=== PATIENT | male | born 1940 | race Caucasian/White ===

== ENCOUNTER 2019-09-05 15:06 | Inpatient (IN) | payer MEDICARE, OTHER ==
[2019-09-05] MEDS ORDERED: HEPARIN SODIUM,PORCINE 5,000 UNIT/ML 1 ML VIAL IV STA (15:10)
--- NOTE | 2019-09-05 15:12 | ED ---
Chest Pain HPI - General Chief Complaint: Chest Pain Stated Complaint: STEMI Time Seen by Provider: 09/05/19 15:06 Source: patient, family Mode of arrival: EMS Limitations: no limitations - History of Present Illness Initial Comments: The patient is a 79-year-old male with no past cardiac medical history who presents the emergency department with reported chest pain and vomiting. Girlfriend is at bedside and helps provide the history. She states that the patient was at the gym working out when he started feeling ill. He had an episode of vomiting with chest pain. He called his girlfriend who did present to the gym to help him. Patient was extremely diaphoretic. EMS did complete a 12-lead is on the patient which demonstrated acute STEMI findings. They then transferred him to the hospital. They provided him with 4 aspirins. The patient denies a previous cardiac history. He takes Viagra daily for a genitourinary issue. He denies any shortness of breath. No ripping or tearing sensation to his back. No further nausea. No abdominal pain. There are no other alleviating, precipitating or modifying factors - Related Data Home Medications Medication Instructions Recorded Confirmed Ascorbic Acid [Vitamin C] 1,000 mg PO DAILY 09/05/19 09/05/19 Biotin 5 mg PO DAILY 09/05/19 09/05/19 Fluticasone Nasal [place] [Flonase 1 spray EA NOSTRIL BID 09/05/19 09/05/19 Nasal [place]] Multivitamins, Thera [Multivitamin 1 tab PO DAILY 09/05/19 09/05/19 (formulary)] Sildenafil Citrate [Viagra] 50 mg PO ONCE PRN 09/05/19 09/05/19 Sildenafil [Revatio] 20 mg PO DAILY 09/05/19 09/05/19 Zinc 50 mg PO DAILY 09/05/19 09/05/19 Sildenafil Citrate [Viagra] 100 mg PO DAILY PRN 09/06/19 09/06/19 Allergies Allergy/AdvReac Type Severity Reaction Status Date / Time No Known Allergies Allergy Verified 09/05/19 22:26 Review of Systems ROS Statement: Those systems with pertinent positive or pertinent negative responses have been documented in the HPI. ROS Other: All systems not noted in ROS Statement are negative. EKG Findings - EKG Comments: EKG Findings:: EKG demonstrates a normal sinus rhythm with a ventricular rate of 79. DC interval 154. QRS 112. QTC 456. There is acute ST elevation in V2 through V6. Reciprocal changes in 1 and aVL. Past Medical History - Past Family History Mother Family Medical History: CVA/TIA, Diabetes Mellitus Additional Family Medical History / Comment(s): Type 2 Diabetes. Father Family Medical History: Cancer Additional Family Medical History / Comment(s): . Had some type of blood cancer Sister(s) Family Medical History: Blood Disorder, Cancer Additional Family Medical History / Comment(s): 1 sister from Brain tumor and second sisier from Leukemia General Exam General appearance: alert, in no apparent distress Head exam: Present: atraumatic, normocephalic, normal inspection Eye exam: Present: normal appearance, PERRL, EOMI. Absent: scleral icterus, conjunctival injection, periorbital swelling ENT exam: Present: normal exam, mucous membranes moist Neck exam: Present: normal inspection. Absent: tenderness, meningismus, lymphadenopathy Respiratory exam: Present: normal lung sounds bilaterally. Absent: respiratory distress, wheezes, rales, rhonchi, stridor Cardiovascular Exam: Present: regular rate, normal rhythm, normal heart sounds. Absent: systolic murmur, diastolic murmur, rubs, gallop, clicks GI/Abdominal exam: Present: soft, normal bowel sounds. Absent: distended, tenderness, guarding, rebound, rigid Extremities exam: Present: normal inspection, full ROM, normal capillary refill. Absent: tenderness, pedal edema, joint swelling, calf tenderness Back exam: Present: normal inspection Neurological exam: Present: alert, oriented X3, CN II-XII intact Psychiatric exam: Present: normal affect, normal mood Skin exam: Present: warm, intact, normal color, diaphoretic. Absent: rash Course Vital Signs 09/05/19 09/05/19 15:07 15:21 Temperature 97.3 F L Pulse Rate 80 81 Respiratory 18 18 Rate Blood Pressure 135/101 137/88 O2 Sat by Pulse 97 99 Oximetry Chest Pain MDM - MDM Upon arrival the patient was promptly placed into trauma bay 2. He is hooked up to continuous pulse ox and cardiac monitoring. EMS does bring a 12-lead EKG which shows demonstrated ST elevation in leads V2 through V6. There are inverted T waves in 1 and aVL. We did not receive a transmitted EKG however I did activate a STEMI at this time with the prehospital EKG. This was followed by an EKG performed at our facility which demonstrates similar findings. I discussed the case with Dr. Salcedo at 1507. The patient was made nothing by mouth. He is given 4000 units of heparin and 80 mg of simvastatin. The patient does have contraindications to nitro. The patient currently has 5 out of 10 pain which is improved. The patient was taken to the Social Insurance Analyst in stable, yet critical condition Critical Care Time Critical Care Time: Yes Critical Care Time: 15 minutes for consultation with multiple specialists include ink printer, hospitalist and construction person. Disposition Clinical Impression: STEMI (ST elevation myocardial infarction), Chest pain Disposition: ADMITTED IP TO THIS HOSP Condition: Serious Is patient prescribed a controlled substance at d/c from ED?: No Decision to Admit Reason: Admit from EC Decision Date: 09/05/19 Decision Time: 15:17
[2019-09-05] MEDS ORDERED: ATORVASTATIN 40 MG TAB PO STA ×2 (15:18→15:23)
[2019-09-05] MEDS ORDERED: NALOXONE 0.4 MG/ML 1 ML VIAL IV PRN (15:19)
[2019-09-05] MEDS ORDERED: ATORVASTATIN 80 MG TAB PO STA (15:23)
[2019-09-05 15:24] LABS: Basophils # (A) 0.1 k/uL (0-0.2); Basophils % (A) 0 %; Eosinophils # (A) 0.2 k/uL (0-0.7); Eosinophils % (A) 2 %; HCT 49.2 % (39.0-53.0); HGB 16.9 gm/dL (13.0-17.5); Lymphocytes # (A) 2.8 k/uL (1.0-4.8); Lymphocytes % (A) 22 %; MCH 30.6 pg (25.0-35.0); MCHC 34.4 g/dL (31.0-37.0); MCV 88.9 fL (80.0-100.0); Mean Platelet Volume 7.6; Monocytes # (A) 0.6 k/uL (0-1.0); Monocytes % (A) 5 %; Neutrophils % (A) 70 %; Platelet Count 245 k/uL (150-450); RBC 5.53 m/uL (4.30-5.90); RDW 12.1 % (11.5-15.5); WBC 12.8 k/uL (3.8-10.6)
--- NOTE | 2019-09-05 15:31 | XR ---
EXAMINATION TYPE: XR chest 1V portable DATE OF EXAM: 09/05/2019 Comparison: None Clinical History: 79-year-old male chest pain Findings: Heart normal size. Mild elongation thoracic aorta. Diffuse interstitial changes without consolidation or pleural effusion. Impression: Mild diffuse interstitial change may be chronic in this patient. Correlate for bronchitis or asthma.
[2019-09-05 15:33] LABS: Partial Thromboplastin Time 22.9 sec (22.0-30.0); Prothrombin Time 10.5 sec (9.0-12.0)
[2019-09-05 15:38] LABS: Albumin 4.6 g/dL (3.5-5.0); Calcium 10.1 mg/dL (8.4-10.2); Potassium 4.1 mmol/L (3.5-5.1); Total Bilirubin 0.9 mg/dL (0.2-1.3); Total Protein 7.6 g/dL (6.3-8.2)
[2019-09-05] MEDS ORDERED: SODIUM CHLORIDE 0.9% 1,000 ML IV ONE (15:40)
[2019-09-05] MEDS ORDERED: MIDAZOLAM 2 MG/2 ML VIAL IVP ONE (15:44)
[2019-09-05] MEDS ORDERED: LIDOCAINE 1% INJ 10MG/ML (20 ML MDV) SQ ONE (15:46)
[2019-09-05] MEDS ORDERED: fentaNYL (PF) 50 MCG/ML 2 ML AMP IVP ONE (15:48)
[2019-09-05] MEDS ORDERED: BIVALIRUDIN BOLUS 250 MG/50 ML IV ONE (16:04)
[2019-09-05] MEDS ORDERED: BIVALIRUDIN 250 MG in SODIUM CHLORIDE 0.9% 50 ML IV ONE (16:05)
[2019-09-05 16:06] LABS: Creatine Kinase MB 2.1 ng/mL (0.0-2.4)
[2019-09-05] MEDS ORDERED: CLOPIDOGREL 75 MG TAB PO ONE (16:07)
[2019-09-05 16:17] LABS: Troponin I 0.046 ng/mL (0.000-0.034)
[2019-09-05] MEDS ORDERED: IOPAMIDOL-370 125ML BTL INJ ONE (16:21)
[2019-09-05] MEDS ORDERED: ONDANSETRON 4 MG/2 ML VIAL IVP ONE ×2 (16:37→17:04)
[2019-09-05] MEDS ORDERED: niCARdipine Syringe (1,000 mcg/10 mL) INTRACORON ONE (16:37)
[2019-09-05] MEDS ORDERED: DOPamine DRIP 800 MG in DEXTROSE/WATER 1 250ML.BAG IV ONE (16:42)
[2019-09-05] MEDS ORDERED: SODIUM CHLORIDE 0.9% 500 ML 500 ML IV ONE ×2 (17:00→17:46)
[2019-09-05] MEDS ORDERED: SODIUM BICARB 8.4% 50 ML VIAL (1 MEQ/ML) IV ONE ×2 (17:15→17:17)
[2019-09-05] MEDS ORDERED: DEXTROSE 5% IN WATER 100 ML with AMIODARONE 150 MG IV ONE (17:21)
[2019-09-05] MEDS: TIROFIBAN BOLUS 12.5MG/250 ML BAG IV ONE ×2 (17:34→17:40)
[2019-09-05] MEDS ORDERED: HEPARIN SOD,PORK IN 0.45% NACL 25,000 UNIT in 0.45% NACL 1 250ML.BAG IV ONE (17:39)
[2019-09-05] MEDS: MAGNESIUM SULFATE-D5W PMX 1 GM in DEXTROSE/WATER 1 100ML.BAG IVPB SCH ×2 (17:39→18:26)
[2019-09-05] MEDS ORDERED: TIROFIBAN 12.5MG-250ML NS 250 ML IV ONE (17:46)
[2019-09-05] MEDS ORDERED: IOPAMIDOL-370 100ML BTL INJ ONE (17:50)
[2019-09-05] MEDS ORDERED: MAG HYDROX/AL HYDROX/SIMETH 30 ML CUP PO PRN (18:01)
[2019-09-05] MEDS ORDERED: RX INFO: IV CONTRAST WAS GIVEN 1 EACH MISC MISCELLANE PRN (18:01)
[2019-09-05] MEDS ORDERED: ATROPINE SULFATE 0.1 MG/ML 10ML SYRINGE IV PRN (18:01)
[2019-09-05] MEDS ORDERED: ZOLPIDEM 5 MG TAB PO PRN (18:01)
[2019-09-05] MEDS ORDERED: NITROGLYCERIN SL TABS 0.4 MG TAB SUBLINGUAL PRN (18:01)
[2019-09-05] MEDS ORDERED: SODIUM CHLORIDE 0.9% 1,000 ML IV SCH (18:15)
[2019-09-05] MEDS ORDERED: SODIUM CHLORIDE 0.9% 250 ML IV ONE (18:27)
[2019-09-05] MEDS ORDERED: AMIODARONE 360 MG in DEXTROSE 5% IN WATER 200 ML IV ONE ×2 (18:58)
[2019-09-05] MEDS ORDERED: HEPARIN SOD,PORK IN 0.45% NACL 25,000 UNIT in 0.45% NACL 1 250ML.BAG IV SCH (22:00)
--- NOTE | 2019-09-05 22:01 | CONS ---
CONSULTATION CHIEF COMPLAINT: Chest pain. This is a 79-year-old gentleman who is from [place], visiting a friend here in [place]. Developed sudden-onset chest pain after he exercised and stopped the exercise, became nauseous, vomited, had severe 10/10 intensity chest pain, came to the ER. His EKG showed acute ST-segment elevation in V2, V3, V4, V5, V6 suggestive of acute anterior wall myocardial infarction. The patient is brought into the dairy and food laboratory assistant as a STEMI and at the time of my evaluation, appears comfortable at rest, hemodynamically stable, but still has chest pain and ST-segment elevation. His labs are pending at this time. The patient does not take any medications other than Viagra. He took Viagra last night and early this morning. FAMILY HISTORY: Negative for premature coronary artery disease. ALLERGIES: None. SOCIAL HISTORY: Negative for smoking, EtOH abuse or drug abuse. REVIEW OF SYSTEMS: HEENT: Unremarkable. CARDIAC: As described above. RESPIRATORY: As described above. GI: Negative. GENITOURINARY: Negative. ALLERGY/IMMUNOLOGY: Negative. MUSCULOSKELETAL: Negative. PSYCHOSOCIAL: Negative. ENDOCRINE: Negative. DERM: Negative. CONSTITUTIONAL: Negative. ONCOLOGICAL: Negative. Rest of the system review is not relevant. EXAM: Comfortable at rest. Vital signs are stable. There is no jugular venous distention. Chest exam reveals good air entry bilaterally. Heart exam reveals first and second heart sounds. No gallop. Abdomen is soft. Exam of extremities did not reveal any edema. Peripheral pulses are felt. DIVISION TRAFFIC SUPERINTENDENT exam did not reveal focal neurological deficits. ASSESSMENT: Acute anterior wall myocardial infarction. PLAN: Patient already received heparin, aspirin, statins. He will undergo emergent cardiac catheterization with a view to performing angioplasty. The patient had been explained of risks, benefits. MMODL / IJN: [id number] /
--- NOTE | 2019-09-05 22:02 | P.HPIM ---
History of Present Illness H&P Date: 09/05/19 Chief Complaint: Chest pain Patient is a 79-year-old male with a known history of prostate issues status post recent surgery, previous history of smoking presents to ER with complaints of severe nausea and vomiting along with chest discomfort. Patient was working out in a gym. He did some x-rays and weightlifting. He went to drink some water and suddenly felt very nauseated and felt like vomiting. Patient went to the restroom and felt very diaphoretic and pale. He called his girlfriend who did present to his usual to help him. EMS was called and follow lead EKG showed acute ST elevated NM. Patient was transferred to Hospital immediately. Patient was given aspirin in route. Denied any complaints of shortness of breath. No recent illnesses. No cough or sputum production. Patient is originally from [place] and is visiting his friend in [place]. Chest x-ray showed mild diffuse interstitial changes may be chronic. Correlate for bronchitis or asthma. EKG showed ST elevation in the lateral leads. Troponin 0.046 Patient had previous history of smoking. Currently not smoking. Occasional alcohol use. No history of hypertension or diabetes. Status post cardiac catheterization and stent placement 2. Placed on impella. Currently in the MICU. Denied any complaints of chest pain now. Review of Systems Constitutional: Patient denies any fever or chills . No generalized weakness or weight loss. Abdomen: Patient denied nausea vomiting and diarrhea and abdominal pain. Cardiovascular: Patient does have chest discomfort and nausea. No palpitations. No leg swelling. Shortness of breath.. Respiratory: patient denied any cough is from production. No shortness of breath Neurologic: Patient denied any numbness or tingling headache. Musculoskeletal: Patient denies any complaints of joint swelling or deformity. Skin: Negative Psychiatric: Negative Endocrine: No heat or cold intolerance. No recent weight gain. Genitourinary: No dysuria or hematuria. All other 14 point ROS negative except the above Past Medical History Additional Past Medical History / Comment(s): prostate issue History of Any Multi-Drug Resistant Organisms: None Reported Additional Past Surgical History / Comment(s): prostate Past Psychological History: No Psychological Hx Reported Smoking Status: Former smoker Past Alcohol Use History: Occasional Past Drug Use History: None Reported Medications and Allergies Allergies Allergy/AdvReac Type Severity Reaction Status Date / Time No Known Allergies Allergy Verified 01/04/20 15:17 Physical Exam Vitals: Vital Signs Temp Pulse Resp BP Pulse Ox 09/05/19 16:01 97.3 F L 81 18 137/88 99 09/05/19 15:21 81 18 137/88 99 09/05/19 15:07 97.3 F L 80 18 135/101 97 Intake and Output 09/05/19 09/05/19 09/05/19 06:59 14:59 22:59 Other: Weight 84.822 kg PHYSICAL EXAMINATION: Patient is lying in the bed comfortably, no acute distress, awake alert and oriented.. HEENT: Normocephalic. Neck is supple. Pupils reactive. Nostrils clear. Oral cavity is moist. Ears reveal no drainage. Neck reveals no JVD, carotid bruits, or thyromegaly. CHEST EXAMINATION: Trachea is central. Symmetrical expansion. Lung snyder clear to auscultation and percussion. CARDIAC: Normal S1, S2 with no gallops. No murmurs ABDOMEN: Soft. Right groin cath site is bleeding. Bowel sounds normal. No organomegaly. No abdominal bruits. Extremities: reveal no edema. No clubbing or cyanosis Neurologically awake, alert, oriented x3 with well-coordinated movements. No focal deficits noted Skin: No rash or skin lesions. Psychiatric: Coperative. Nonsuicidal Musculoskeletal: No joint swelling or deformity. Normal range of motion. Results CBC & Chem 7: 09/05/19 15:10 09/05/19 15:10 Labs: Abnormal Lab Results - Last 24 Hours (Table) 09/05/19 09/05/19 09/05/19 Range/Units 15:10 15:10 15:10 WBC 12.8 H (3.8-10.6) k/uL Neutrophils # 9.0 H (1.3-7.7) k/uL BUN 21 H (9-20) mg/dL Glucose 127 H (74-99) mg/dL Total Creatine Kinase 201 H (55-170) U/L Troponin I 0.046 H* (0.000-0.034) ng/mL Thrombosis Risk Factor Assmnt - DVT/VTE Prophylaxis DVT/VTE Prophylaxis: Pharmacologic Prophylaxis ordered Assessment and Plan Assessment: Acute ST elevated NM. Status post cardiac catheterization and stent placement 2 History of prostate issues status post surgery Previous history of smoking Plan: Patient will be continued on telemetry monitoring. Currently on Impella. Also being continued on heparin drip and amiodarone drip. Patient Was started on aspirin and beta blockers. Cardiology and pulmonary is following. Further recommendations based on the clinical course. Time with Patient: Greater than 30
[2019-09-05 22:35] LABS: Albumin 3.6 g/dL (3.5-5.0); Calcium 8.9 mg/dL (8.4-10.2); INR 1.2 (<1.2); Prothrombin Time 12.5 sec (9.0-12.0); Total Bilirubin 1.7 mg/dL (0.2-1.3); Total Protein 6.4 g/dL (6.3-8.2)
[2019-09-05 22:37] LABS: Basophils % (A) 0 %; Eosinophils % (A) 0 %; HCT 44.4 % (39.0-53.0); HGB 15.4 gm/dL (13.0-17.5); Lymphocytes % (A) 6 %; MCH 30.8 pg (25.0-35.0); MCHC 34.8 g/dL (31.0-37.0); MCV 88.5 fL (80.0-100.0); Mean Platelet Volume 8.9; Monocytes # (A) 0.7 k/uL (0-1.0); Monocytes % (A) 4 %; Neutrophils # (A) 15.1 k/uL (1.3-7.7); Neutrophils % (A) 89 %; Platelet Count 260 k/uL (150-450); Potassium 4.2 mmol/L (3.5-5.1); RBC 5.01 m/uL (4.30-5.90); RDW 12.3 % (11.5-15.5); WBC 16.9 k/uL (3.8-10.6)
--- NOTE | 2019-09-05 22:46 | CC ---
CARDIAC CATHETERIZATION REPORT INDICATION: Acute anterior wall myocardial infarction. PROCEDURE NOTE: After obtaining informed consent, left heart catheterization and coronary angiogram were performed via the right femoral artery using standard Brisa catheters. The patient tolerated the procedure well without any obvious immediate complications. Patient received moderate conscious sedation. Total sedation time was 14 minutes. FINDINGS: HEMODYNAMICS: Left ventricular end-diastolic pressure is around 24 mm. There is no significant gradient across the aortic valve. LEFT VENTRICULOGRAM: Left ventriculogram was not performed. ANGIOGRAPHIC DATA: LEFT MAIN CORONARY ARTERY: Left main coronary artery is a normal-sized vessel and is free of stenosis. Divides into left anterior descending coronary artery and circumflex coronary artery. LEFT ANTERIOR DESCENDING CORONARY ARTERY: LAD is totally occluded in its proximal portion. CIRCUMFLEX CORONARY ARTERY: Circumflex coronary artery gives off a high OM branch that shows an ostial stenosis that seems to be around 60%. [place] circumflex coronary artery has a [id number] atherosclerotic plaque. The LAD appears totally occluded in its proximal portion. The distal left main has an atherosclerotic plaque. RIGHT CORONARY ARTERY: Right coronary artery is a large dominant vessel that shows mild nonobstructive disease in the distal portion. CONCLUSIONS: Acutely occluded proximal LAD, 60 percent stenosis involving the ostial portion of the high OM branch and mild nonobstructive disease involving mid to distal circumflex coronary artery. PLAN: Patient will undergo angioplasty of the proximal LAD by Dr. Chau, the on-call steward/stewardess second class. JEFFREY / PRESLEY: [id number] /
[2019-09-05] MEDS ORDERED: DEXTROSE/WATER 1 250ML.BAG with DOPamine DRIP 800 MG IV SCH (23:00)
--- NOTE | 2019-09-05 23:43 | PTCA ---
PERCUTANEOUSTRANS CORORONARY ANGIOGRAPHY DATE OF SERVICE: September 05, 2019. PERFORMING PHYSICIAN: Ascencion Chau MD. PROCEDURE PERFORMED: 1. Aspiration thrombectomy from the left anterior descending artery with extraction of thrombus. 2. Successful stenting of the proximal left anterior descending artery using a 3.0 x 15 and 3.25 x 12 mm Xience LYNNE with an excellent angiographic results and reduction of stenosis from 100% to 0%. 3. Successful placement of Impella in the left ventricle. INDICATION: This is a 79-year-old gentleman with no prior medical history, who presented to the hospital with chest discomfort and was diagnosed with acute anterior ST-elevation myocardial infarction. He underwent a heart catheterization by Dr. Salcedo and that revealed occluded LAD in the proximal portion right from the left main. Beside that, the patient does have intermediate to severe disease involving the distal left main coronary artery. The decision was made towards percutaneous coronary intervention. APPROACH: Right common femoral artery and left common femoral artery. COMPLICATION: None. LEVEL OF SEDATION: Is an hour and 45 minutes. PROCEDURE DESCRIPTION: Please refer to diagnostic heart catheterization was performed by Dr. Salcedo earlier today. Anticoagulation was initiated using Angiomax with bolus and drip. Subsequently I did engage the left main using JL4 guide. I did wire the LAD using a whisper wire and the wire was advanced to the mid to distal LAD. After that, I did aspiration thrombectomy from the LAD using an [place] catheter. Initially I was able to extract a small amount of thrombus and the following angiogram showed that large thrombus burden still there. I went back with the aspiration thrombectomy catheter and I was able to extract more thrombus burden from the LAD and restore the flow to the LAD although it was not SID-3 flow. Subsequently, I did balloon angioplasty of the left anterior descending artery in the proximal portion using 2.0 x 12 mm balloon. The balloon was inflated under 20 atmospheres for 20 seconds. After that, I did place in the LAD proximally 3.0 x 15 mm Xience drug-eluting stent where the stent was positioned under fluoroscopy guidance and deployed under 14 atmospheres for 20 seconds. The stent proximally looks good, well apposed to wall of the LAD, but in the mid and distal portion of the stent seems to be not well apposed because that area was aneurysmal/large. Because of that, I did post dilated that mid and distal, portion of portions of the stent using 3.75 mm noncompliant balloon. The balloon was inflated under 18 atmospheres for 20 seconds. The following angiogram showed no flow in the left anterior descending artery. At that point, the patient's blood pressure was 2 start marginally low and dropped to about 70 mmHg. At that point, I decided to use an Impella in the left ventricle. Because the pressure continues to be persistently low and the patient was symptomatic, I decided to pursue with the Impella in the left ventricle. I did access the left common femoral artery using micropuncture technique under ultrasound guidance, the micropuncture wire passed easily and then I placed a 6-Ethiopian sheath in the left common femoral artery. I decided to go to the Impella in the right groin because the right iliac artery was less tortuous than the left iliac artery and because I want to do Perclose down the line. So I did upgrade my sheath into 14-Ethiopian sheath over stiff 035 wire. After that, I did cross the left ventricle using 0.035 J-wire with the backup support of pigtail catheter. Then I did exchange my 0.035 wire into 018 victory 18 wire using the 5-Ethiopian pigtail catheter. I did use an 18 wire because the Impella 018 wire every time crossed the left ventricle, the patient went into VFib and we had to shock the patient twice. At that point, I decided to use a V18 wire. With the 18 wire, the left ventricle was more saddled without any arrhythmia. Subsequently the Impella was advanced over the 018 wire to the left ventricle and it was turned on to pump at 3.5 L/minute. Subsequently, I went back to using JL4 guide to check the stent in the LAD proximally and the following angiogram did show that the stent appeared to be thrombosed in the midportion with haziness and possible clot there. I decided to cover that with a stent so I did wire it using a 014 wire and then I did another 3.25 x 12 mm Xience LYNNE where the stent was positioned under fluoroscopy guidance and deployed under 14 atmospheres for 20 seconds with the following angiogram showed good results. The procedure was completed without any complication. POSTPROCEDURE MANAGEMENT: 1. Dual anti-platelet therapy. 2. Anti-platelet with Aggrastat and anticoagulation with heparin. 3. Aggressive cholesterol control. 4. An echocardiogram with Doppler. 5. Standard groin care. 6. Continue Impella for at least 24-48 hours. 7. Monitor for symptoms and signs of acute limb ischemia. 8. Follow up with the patient. MMODL / IJN: [id number] /
[2019-09-05] MEDS ORDERED: ONDANSETRON 4 MG/2 ML VIAL ONE (23:47)
[2019-09-06] MEDS: HEPARIN SODIUM,PORCINE 12,500 UNIT in DEXTROSE 5% IN WATER 500 ML IV SCH ×2 (00:01)
[2019-09-06] MEDS: AMIODARONE 300 MG in DEXTROSE 5% IN WATER 250 ML IV SCH ×6 (00:55→15:35)
[2019-09-06] MEDS ORDERED: TIROFIBAN 12.5MG-250ML NS 250 ML IV SCH (02:15)
[2019-09-06 04:27] LABS: Basophils % (A) 0 %; Eosinophils % (A) 0 %; HCT 44.1 % (39.0-53.0); HGB 15.4 gm/dL (13.0-17.5); Lymphocytes # (A) 1.3 k/uL (1.0-4.8); Lymphocytes % (A) 7 %; MCH 31.1 pg (25.0-35.0); Mean Platelet Volume 7.8; Monocytes # (A) 0.8 k/uL (0-1.0); Monocytes % (A) 5 %; Neutrophils # (A) 15.1 k/uL (1.3-7.7); Neutrophils % (A) 87 %; Platelet Count 251 k/uL (150-450); RBC 4.96 m/uL (4.30-5.90); RDW 12.6 % (11.5-15.5); WBC 17.3 k/uL (3.8-10.6)
[2019-09-06 04:54] LABS: Calcium 9.1 mg/dL (8.4-10.2); Magnesium 2.2 mg/dL (1.6-2.3)
[2019-09-06 04:59] LABS: Potassium 4.1 mmol/L (3.5-5.1)
[2019-09-06] MEDS ORDERED: METOPROLOL TARTRATE 25 MG TAB PO STA ×2 (06:06→14:59)
[2019-09-06] MEDS ORDERED: AMIODARONE 300 MG in DEXTROSE 5% IN WATER 250 ML IV SCH ×2 (07:03)
[2019-09-06] MEDS: ASPIRIN 325 MG TAB PO SCH (09:49)
--- NOTE | 2019-09-06 11:02 | CONS ---
CONSULTATION PULMONARY/CRITICAL CARE CONSULTATION: DATE OF SERVICE: 09/06/2019 This is a 79-year-old male who lives out of the area. He has no significant past cardiac history. He presents to the emergency department with complaints of severe chest pain and vomiting. His girlfriend is at the bedside. She provides some of the history. Apparently, the patient was working out at the gym when he started feeling ill. He had an episode of vomiting and chest discomfort. He called his girlfriend who helped him get to the emergency room. Apparently, the patient was extremely diaphoretic. EMS did do a 12-lead EKG on the patient which demonstrated significant ST- segment elevation anterior leads, particularly anterior septal and lateral leads. He was transferred to the hospital. He was given aspirin. He was placed on oxygen. The patient did apparently recently have use of Viagra. Anyway, the patient denied any shortness of breath. There was no ripping or tearing sensation. No abdominal pain. No fever or chills. The patient was diagnosis having a ST-segment elevation myocardial infarction. The patient went to the cardiac cath lab radiology technologist. Two stents were placed in the LAD. The patient developed ventricular fibrillation. He was defibrillated x2 with 200 joules. An Impella device was placed. The patient is currently on 3 L nasal cannula. He is getting dopamine at 2.5 mcg/kg per minute, heparin via weight based protocol, Aggrastat at 0.15 mcg/kg per minute, amiodarone 0.5 mg/minute and 0.9 at 20 mL an hour. The patient seems to be resting relatively comfortably, but he is very, very tired. HOME MEDICATIONS: Include zinc, modafinil, multivitamins, Flonase nasal spray, biotin, and ascorbic acid. 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 ALLERGIES: Denied. PAST MEDICAL HISTORY: Unremarkable say for prostate issue. SURGICAL HISTORY: Unremarkable say for prostate surgery. SOCIAL HISTORY: Positive for remote tobacco use. He drinks socially. No illicit drug use. Mother and father were healthy. The rest of the history is not too remarkable. Again, he does not live in this area. He was up visiting his girlfriend. REVIEW OF SYSTEMS: CONSTITUTIONAL: Fatigue. NEUROLOGIC: Negative. HEENT: Negative. CARDIOVASCULAR: Chest pain. PULMONARY: Negative. GI: Vomiting. : Negative. RHEUMATOLOGIC: Negative. IMMUNOLOGIC: Negative. ENDOCRINOLOGIC: Negative. DERMATOLOGIC: Negative. PHYSICAL EXAMINATION: Current vital signs are reviewed. His temperature 98.2, heart rate 72, respiratory rate 12, blood pressure 130/95, mean 1.6, 3 L saturation is 94%. Appears in no acute distress. HEENT examination is grossly unremarkable. Mucous membranes are moist. Nasal O2 in place. NECK: Supple full range of motion. No adenopathy. Neck veins are flat. CARDIOVASCULAR: Examination reveals regular rhythm rate. S1, S2 normal. No distinct murmur noted. LUNGS: A few scattered rhonchi. No wheezes or crackles. Breath sounds equal. ABDOMEN: Soft. Bowel sounds are heard. EXTREMITIES are intact. No cyanosis, clubbing, or edema. SKIN: Without rash. NEUROLOGIC: Examination is brief but nonfocal. LABS: Reviewed. White count 17.3, hemoglobin 15.4, hematocrit 44.1, platelet count is normal. PTT 77.1. Sodium 137, potassium 4.1, chloride 104, CO2 22, anion gap is 11. BUN and creatinine were 21 and 1.11. AST 668, ALT 77. His troponins were 0.046, 251 and then 184. Chest x-ray is reviewed. It shows some mild diffuse interstitial changes, which may be consistent with some mild interstitial edema. Microbiology is negative or pending. Medications are reviewed. He is on all the appropriate post cardiac catheterization medications. ASSESSMENT: 1. ST-segment elevation myocardial infarction, secondary to coronary artery disease, with 2 stents placed in the left anterior descending. 2. Ventricular fibrillation, status post defibrillation x2 and placement of an Impella device. 3. Remote tobacco history. 4. History of prostate disorder. 5. No other major medical problems to speak of. PLAN: Will continue to follow. Prognosis is guarded. He is on appropriate drips including dopamine, Aggrastat, amiodarone, and saline. He is also on heparin via weight based protocol. No additional recommendations are made. Again prognosis is guarded. Labs, x-rays and medications are all reviewed. MMODL / IJN: [id number] /
[2019-09-06] MEDS: CLOPIDOGREL 75 MG TAB PO SCH (12:08)
[2019-09-06 13:33] VITALS: BMI 28.0
--- NOTE | 2019-09-06 15:56 | PN ---
PROGRESS NOTE 79-year-old gentleman who is admitted to the hospital with acute anterior wall myocardial infarction and underwent emergent cardiac catheterization and angioplasty of LAD. The patient developed ventricular fibrillation during his angioplasty and had to be twice shocked. He had an Impella device placed and has remained hemodynamically stable. The patient had low urine output and was started on dopamine following which his urine output had improved. At the time of my evaluation this morning he remains in sinus rhythm, hemodynamically stable. Impala is functioning normally. The patient is on IV amiodarone which will be switched to p.o. amiodarone, aspirin Lipitor, Plavix, IV heparin and Aggrastat. The patient will have Impella support until tomorrow. I discussed this with Dr. Chau and I am going to add a small dose of beta jatinder and ALESHIA inhibitor to him. His peak troponin was 250. PHYSICAL EXAMINATION: On exam this morning, he appears comfortable at rest. Vital signs are stable. Chest exam reveals good air entry bilaterally. Heart exam reveals first and second heart sounds. No gallop. No murmur. Abdomen is soft. Exam of extremities did not reveal any edema. Peripheral pulses are felt. LABS: Show that the hemoglobin is 15.4, platelet count is 250. Potassium is 4.1, creatinine is 1.1. ASSESSMENT: 1. Acute anterior wall myocardial infarction. 2. Cardiogenic shock. 3. Ventricular fibrillation. PLAN: Patient is much better this morning. Will continue with the hemodynamic support for another 24 hours. Obtain a 2D echo in the morning to assess his LV function. JEFFREY / LISAN: [id number] /
[2019-09-06] MEDS ORDERED: SENNOSIDES 8.6 MG TAB PO PRN (19:41)
[2019-09-06] MEDS ORDERED: ACETAMINOPHEN TAB 500 MG TAB PO PRN (19:41)
[2019-09-06] MEDS: METOPROLOL TARTRATE 25 MG TAB PO SCH (20:19)
[2019-09-06] MEDS: ATORVASTATIN 80 MG TAB PO SCH (20:19)
[2019-09-06] MEDS ORDERED: AMIODARONE 200 MG TAB PO SCH (21:00)
--- NOTE | 2019-09-06 23:39 | P.PN ---
Subjective Progress Note Date: 09/06/19 Principal diagnosis: Acute ST elevated [place] Patient is a 79-year-old male with a known history of prostate issues status post recent surgery, previous history of smoking presents to ER with complaints of severe nausea and vomiting along with chest discomfort. Patient was working out in a gym. He did some x-rays and weightlifting. He went to drink some water and suddenly felt very nauseated and felt like vomiting. Patient went to the restroom and felt very diaphoretic and pale. He called his girlfriend who did present to his usual to help him. EMS was called and follow lead EKG showed acute ST elevated [place]. Patient was transferred to Hospital immediately. Patient was given aspirin in route. Denied any complaints of shortness of breath. No recent illnesses. No cough or sputum production. Patient is originally from [place] and is visiting his friend in [place]. Chest x-ray showed mild diffuse interstitial changes may be chronic. Correlate for bronchitis or asthma. EKG showed ST elevation in the lateral leads. Troponin 0.046 Patient had previous history of smoking. Currently not smoking. Occasional alcohol use. No history of hypertension or diabetes. Status post cardiac catheterization and stent placement 2. Placed on impella. Currently in the MICU. Denied any complaints of chest pain now. 09/06/2019 Patient is currently in the MICU. Remained on ImPELLA. Otherwise patient denied any complaints of chest pain or shortness of breath. Feels weak and tired. No complaints of nausea vomiting or abdominal pain. Patient did have a run of V. tach. Currently being continued on amiodarone drip. Also on metoprolol. Cardiology and pulmonary is following. Active Medications Acetaminophen (Tylenol Tab) 500 mg PO Q6HR PRN PRN Reason: Fever and/ or Pain Al Hydroxide/Mg Hydroxide (Maalox) 30 ml PO Q4HR PRN PRN Reason: Heartburn Aspirin (Aspirin) 325 mg PO DAILY [facility] Last Admin: 09/06/19 09:49 Dose: 325 mg Documented by: Atorvastatin Calcium (Lipitor) 80 mg PO HS [facility] Last Admin: 09/06/19 20:19 Dose: 80 mg Documented by: Atropine Sulfate (Atropine) 0.5 mg IV ONCE PRN PRN Reason: Symptomatic Bradycardia Clopidogrel Bisulfate (Plavix) 75 mg PO DAILY [facility] Last Admin: 09/06/19 12:08 Dose: 75 mg Documented by: Heparin Sodium (Porcine) 12, (500 unit/ Dextrose/Water) 501.25 mls @ 0 mls/hr IV DIRECTED [facility] Last Admin: 09/06/19 00:01 Dose: 11.3 mls/hr Documented by: Heparin Sodium/Sodium Chloride (25,000 unit/ Sodium Chloride) 250 mls @ 0 mls/hr IV .Q0M [facility]; Protocol Last Titration: 09/06/19 20:05 Dose: 357 units/hr, 3.57 mls/hr Documented by: Amiodarone HCl 300 mg/ (Dextrose/Water) 250 mls @ 25 mls/hr IV .Q10H [facility]; Protocol Last Admin: 09/06/19 15:35 Dose: 0.5 mg/min, 25 mls/hr Documented by: Lisinopril (Zestril) 2.5 mg PO DAILY [facility] Metoprolol Tartrate (Lopressor) 25 mg PO BID [facility] Last Admin: 09/06/19 20:19 Dose: 25 mg Documented by: Miscellaneous Information (Rx Info: Iv Contrast Was Given) 1 each MISCELLANE DAILY PRN PRN Reason: Per Protocol Stop: 09/07/19 18:02 Naloxone HCl (Narcan) 0.2 mg IV Q2M PRN PRN Reason: Opioid Reversal Nitroglycerin (Nitrostat) 0.4 mg SUBLINGUAL Q5M PRN PRN Reason: Chest Pain Senna (Senokot) 8.6 mg PO DAILY PRN PRN Reason: Constipation Zolpidem Tartrate (Ambien) 5 mg PO HS PRN PRN Reason: Insomnia Last Admin: 09/06/19 20:19 Dose: 2.5 mg Documented by: Objective - Vital Signs Vital signs: Vital Signs Temp 96.7 F L 09/06/19 20:00 Pulse 65 09/06/19 22:15 Resp 10 L 09/06/19 22:15 BP 97/70 09/06/19 22:00 Pulse Ox 93 L 09/06/19 22:15 Intake & Output 09/06/19 09/06/19 09/07/19 06:59 18:59 06:59 Intake Total 1260.667 893.221 130.8 Output Total 1747 665 95 Balance -486.333 228.221 35.8 Weight 91.3 kg 91.3 kg Intake: IV 1147.50 543.10 93 DOPamine DRIP 800 mg In 23.88 19.90 Dextrose/Water 1 250ml. bag @ 0 mls/hr IV .[facility] Rx#:[id number] Impella Purge Fluid (D5 122.3 132 33 with Heparin) Magnesium Sulfate-D5w Pmx 100 1 gm In Dextrose/Water 1 100ml.bag @ 100 mls/hr IVPB Q1H [facility] Rx#: [id number] Sodium Chloride 0.9% 1, 735 240 60 000 ml @ 75 mls/hr IV . [id number] [facility] Rx#:[id number] Tirofiban 12.5MG-250Ml Ns 166.32 151.20 250 ml @ 0 mls/hr IV . [facility] Rx#: [id number] Intake, IV Titration 113.167 305.121 37.8 Amount Amiodarone 300 mg In 250 Dextrose 5% in Water 250 ml @ 0.5 MG/MIN 25 mls/hr IV .Q10H [facility] Rx#: [id number] Heparin Sod,Pork in 0.45% 113.167 55.121 37.8 NaCl 25,000 unit In 0.45 % NaCl 1 250ml.bag @ Per Protocol IV .Q0M [facility] Rx#: [id number] Oral 45 Output: Urine 1747 665 95 Other: Voiding Method Indwelling Catheter Indwelling Catheter Indwelling Catheter ABP, PAP, CO, CI - Last Documented Arterial Blood Pressure 103/58 - Exam PHYSICAL EXAMINATION: Patient is lying in the bed comfortably, no acute distress, awake alert and oriented.. HEENT: Normocephalic. Neck is supple. Pupils reactive. Nostrils clear. Oral cavity is moist. Ears reveal no drainage. Neck reveals no JVD, carotid bruits, or thyromegaly. CHEST EXAMINATION: Trachea is central. Symmetrical expansion. Lung snyder clear to auscultation and percussion. CARDIAC: Normal S1, S2 with no gallops. No murmurs ABDOMEN: Soft. Right groin cath is in place. No bleeding. Bowel sounds normal. No organomegaly. No abdominal bruits. Extremities: reveal no edema. No clubbing or cyanosis Neurologically awake, alert, oriented x3 with well-coordinated movements. No focal deficits noted Skin: No rash or skin lesions. Psychiatric: Coperative. Nonsuicidal Musculoskeletal: No joint swelling or deformity. Normal range of motion. - Labs CBC & Chem 7: 09/06/19 04:08 09/06/19 04:08 Labs: Abnormal Lab Results - Last 24 Hours (Table) 09/05/19 09/05/19 09/05/19 Range/Units 21:18 21:18 21:18 WBC 16.9 H (3.8-10.6) k/uL Neutrophils # 15.1 H (1.3-7.7) k/uL PT (9.0-12.0) sec INR (<1.2) APTT (22.0-30.0) sec Sodium (137-145) mmol/L Carbon Dioxide (22-30) mmol/L BUN (9-20) mg/dL Glucose (74-99) mg/dL Magnesium 2.4 H (1.6-2.3) mg/dL Total Bilirubin (0.2-1.3) mg/dL AST (17-59) U/L ALT (4-49) U/L CK-MB (CK-2) 441.0 H (0.0-2.4) ng/mL Troponin I 251.000 H* (0.000-0.034) ng/mL 09/05/19 09/05/19 09/06/19 Range/Units 21:18 21:18 04:08 WBC (3.8-10.6) k/uL Neutrophils # (1.3-7.7) k/uL PT 12.5 H (9.0-12.0) sec INR 1.2 H (<1.2) APTT (22.0-30.0) sec Sodium 135 L (137-145) mmol/L Carbon Dioxide 20 L (22-30) mmol/L BUN 21 H (9-20) mg/dL Glucose 172 H 198 H (74-99) mg/dL Magnesium (1.6-2.3) mg/dL Total Bilirubin 1.7 H (0.2-1.3) mg/dL AST 668 H (17-59) U/L ALT 77 H (4-49) U/L CK-MB (CK-2) (0.0-2.4) ng/mL Troponin I (0.000-0.034) ng/mL 09/06/19 09/06/19 09/06/19 Range/Units 04:08 04:08 04:08 WBC 17.3 H (3.8-10.6) k/uL Neutrophils # 15.1 H (1.3-7.7) k/uL PT (9.0-12.0) sec INR (<1.2) APTT 77.1 H (22.0-30.0) sec Sodium (137-145) mmol/L Carbon Dioxide (22-30) mmol/L BUN (9-20) mg/dL Glucose (74-99) mg/dL Magnesium (1.6-2.3) mg/dL Total Bilirubin (0.2-1.3) mg/dL AST (17-59) U/L ALT (4-49) U/L CK-MB (CK-2) 367.0 H (0.0-2.4) ng/mL Troponin I 184.000 H* (0.000-0.034) ng/mL 09/06/19 09/06/19 Range/Units 11:53 18:05 WBC (3.8-10.6) k/uL Neutrophils # (1.3-7.7) k/uL PT (9.0-12.0) sec INR (<1.2) APTT 83.8 H 101.9 H* (22.0-30.0) sec Sodium (137-145) mmol/L Carbon Dioxide (22-30) mmol/L BUN (9-20) mg/dL Glucose (74-99) mg/dL Magnesium (1.6-2.3) mg/dL Total Bilirubin (0.2-1.3) mg/dL AST (17-59) U/L ALT (4-49) U/L CK-MB (CK-2) (0.0-2.4) ng/mL Troponin I (0.000-0.034) ng/mL Assessment and Plan Assessment: Acute ST elevated [place]. Status post cardiac catheterization and stent placement 2 Nonsustained V. tach. History of prostate issues status post surgery Previous history of smoking Plan: Patient will be continued on telemetry monitoring. Currently on Impella. Also being continued on heparin drip and amiodarone drip. Patient Was started on aspirin and beta blockers. Cardiology and pulmonary is following. Further recommendations based on the clinical course. Time with Patient: Greater than 30
[2019-09-07] MEDS: AMIODARONE 300 MG in DEXTROSE 5% IN WATER 250 ML IV SCH ×4 (00:48→14:11)
[2019-09-07 04:26] LABS: HCT 36.8 % (39.0-53.0); HGB 12.8 gm/dL (13.0-17.5); MCH 30.8 pg (25.0-35.0); MCHC 34.9 g/dL (31.0-37.0); MCV 88.5 fL (80.0-100.0); Mean Platelet Volume 7.9; Platelet Count 163 k/uL (150-450); RBC 4.16 m/uL (4.30-5.90); RDW 12.4 % (11.5-15.5); WBC 18.1 k/uL (3.8-10.6)
[2019-09-07 04:49] LABS: Albumin 3.2 g/dL (3.5-5.0); Calcium 8.6 mg/dL (8.4-10.2); Total Bilirubin 1.6 mg/dL (0.2-1.3); Total Protein 5.8 g/dL (6.3-8.2)
[2019-09-07] MEDS: HEPARIN SODIUM,PORCINE 12,500 UNIT in DEXTROSE 5% IN WATER 500 ML IV SCH ×2 (06:06)
--- NOTE | 2019-09-07 07:19 | XR ---
EXAMINATION TYPE: XR chest 1V portable DATE OF EXAM: 09/07/2019 COMPARISON: 09/05/2019 HISTORY: Shortness of breath TECHNIQUE: Single frontal view of the chest is obtained. FINDINGS: There is no focal air space opacity, pleural effusion, or pneumothorax seen. There are 2 n ew lesions now overlying the left ventricle and right mid mediastinum. Minimal pulmonary vascular con gestion has slightly improved. The cardiac silhouette size is within normal limits. The osseous str uctures are intact. IMPRESSION: Improved pulmonary vascular congestion, now minimal.
[2019-09-07] MEDS ORDERED: LISINOPRIL 2.5 MG TAB PO SCH (09:00)
[2019-09-07] MEDS: METOPROLOL TARTRATE 25 MG TAB PO SCH ×2 (09:57→20:02)
[2019-09-07] MEDS: CLOPIDOGREL 75 MG TAB PO SCH (09:57)
[2019-09-07] MEDS: ASPIRIN 325 MG TAB PO SCH (09:57)
--- NOTE | 2019-09-07 10:06 | PN ---
PROGRESS NOTE Mr. Soriano presented with an ST elevation [place], had his Impella placed, had LAD stenting performed. He is hemodynamically stable, doing better, urine output is fairly decent. His Impella device are being weaned. He will go to the poultry hatchery laborer around 11:30 today for the removal of the device. His both his groins are good. Distal pulses are good. His vital signs stable, S1-S2 heard normally. No significant murmurs. Lungs are clear. Abdomen is soft. Rest of physical exam is unchanged. Will continue current medical regimen and he will go to the poultry hatchery laborer for Impella removal today. MMODL / IJN: [id number] /
--- NOTE | 2019-09-07 11:44 | ECHOF ---
Referral Reason:STEMI MEASUREMENTS -------- HEIGHT: 182.9 cm WEIGHT: 90.7 kg BP: IVSd: 0.8 cm (0.6 - 1.1) LVIDd: 4.8 cm (3.9 - 5.3) LVPWd: 1.1 cm (0.6 - 1.1) IVSs: 1.1 cm LVIDs: 4.3 cm LVPWs: 1.2 cm MV E Kulwinder: 0.90 m/s MV DecT: 232 ms MV A Kulwinder: 0.34 m/s MV E/A Ratio: 2.69 RAP: 5.00 mmHg RVSP: 8.40 mmHg FINDINGS -------- Sinus rhythm. This was a technically difficult study with suboptimal views. The left ventricular size is normal. Left ventricular wall thickness is normal. Overall left vent ricular systolic function is severely impaired with, an EF between 20 - 25 %. Apical anterior LV wa ll motion is hyperkinetic. Apical lateral LV wall motion is hypokinetic. Apical inferior LV wal l motion is hypokinetic. Basal Segment Uy[place] only. Septal Hypokinesis [place] Hypokinesis. The right ventricle is normal in size. The left atrium was not well visualized. The right atrium was not well visualized. 5.0mg OF Lumason UTLIZED: 2 OR MORE WALL SEGMENTS NOT VISUALIZED. The aortic valve was not well visualized. The mitral valve was not well visualized. The tricuspid valve was not well visualized. The pulmonic valve was not well visualized. The aortic root size is normal. IVC Not well visulized. CONCLUSIONS -------- 1. Sinus rhythm. 2. This was a technically difficult study with suboptimal views. 3. The left ventricular size is normal. 4. Left ventricular wall thickness is normal. 5. Overall left ventricular systolic function is severely impaired with, an EF between 20 - 25 %. 6. Apical anterior LV wall motion is hyperkinetic. 7. Apical lateral LV wall motion is hypokinetic. 8. Apical inferior LV wall motion is hypokinetic. 9. Basal Segment Uyen only. 10. Septal Hypokinesis 11. [place] Hypokinesis. 12. The right ventricle is normal in size. 13. The left atrium was not well visualized. 14. The right atrium was not well visualized. 15. 5.0mg OF Lumason UTLIZED: 2 OR MORE WALL SEGMENTS NOT VISUALIZED. 16. The aortic valve was not well visualized. 17. The mitral valve was not well visualized. 18. The tricuspid valve was not well visualized. 19. The pulmonic valve was not well visualized. 20. The aortic root size is normal. 21. IVC Not well visulized. LICENSED MORTGAGE LOAN OFFICER: Verónica Whatley RDCS
[2019-09-07] MEDS ORDERED: IV FLUID CONTINUATION 950 ML IV ONE (11:55)
[2019-09-07] MEDS ORDERED: LIDOCAINE 1% INJ 10MG/ML (20 ML MDV) SQ ONE (12:27)
[2019-09-07] MEDS ORDERED: IOPAMIDOL-370 125ML BTL INJ ONE (13:20)
--- NOTE | 2019-09-07 16:43 | P.PN ---
Subjective 79-year-old male with a known history of prostate issues status post recent surgery, previous history of smoking presents to ER with complaints of severe nausea and vomiting along with chest discomfort. Patient was working out in a gym. He did some x-rays and weightlifting. He went to drink some water and suddenly felt very nauseated and felt like vomiting. Patient went to the restroom and felt very diaphoretic and pale. He called his girlfriend who did present to his usual to help him. EMS was called and follow lead EKG showed acute ST elevated [place]. Patient was transferred to Hospital immediately. Patient was given aspirin in route. Denied any complaints of shortness of breath. No recent illnesses. No cough or sputum production. Patient is originally from [place] and is visiting his friend in [place]. Chest x-ray showed mild diffuse interstitial changes may be chronic. Correlate for bronchitis or asthma. EKG showed ST elevation in the lateral leads. Troponin 0.046 Patient had previous history of smoking. Currently not smoking. Occasional alcohol use. No history of hypertension or diabetes. Status post cardiac catheterization and stent placement 2. Placed on impella. Currently in the MICU. Denied any complaints of chest pain now. 09/06/2019 Patient is currently in the MICU. Remained on ImPELLA. Otherwise patient denied any complaints of chest pain or shortness of breath. Feels weak and tired. No complaints of nausea vomiting or abdominal pain. Patient did have a run of V. tach. Currently being continued on amiodarone drip. Also on metoprolol. Cardiology and pulmonary is following. 09/07/2019 Patient's him to let devise was removed today and patient is otherwise clinically doing well patient just came out of the OR unable to answer my questions very well. Review of systems: Unable to obtain due to above-mentioned reasons All inpatient medications were reviewed and appropriate changes in these medications as dictated in the interval history and assessment and plan. Objective - Vital Signs Vital signs: Vital Signs Temp 97.6 F 09/07/19 16:00 Pulse 63 09/07/19 16:02 Resp 15 09/07/19 16:02 BP 91/61 09/07/19 16:02 Pulse Ox 95 09/07/19 16:02 Intake & Output 09/06/19 09/07/19 09/07/19 18:59 06:59 18:59 Intake Total 893.221 671.217 649 Output Total 665 651 445 Balance 228.221 20.217 204 Weight 91.3 kg 90.8 kg Intake: IV 543.10 403 399 DOPamine DRIP 800 mg In 19.90 Dextrose/Water 1 250ml. bag @ 0 mls/hr IV .[facility] Rx#:[id number] Impella Purge Fluid (D5 132 143 44 with Heparin) NS KVO 120 305 Sodium Chloride 0.9% 1, 240 140 000 ml @ 75 mls/hr IV . [id number] [facility] Rx#:[id number] Tirofiban 12.5MG-250Ml Ns 151.20 250 ml @ 0 mls/hr IV . [facility] Rx#: [id number] Intake, IV Titration 305.121 268.217 250 Amount Amiodarone 300 mg In 250 Dextrose 5% in Water 250 ml @ 0.5 MG/MIN 25 mls/hr IV .Q10H [facility] Rx#: [id number] Amiodarone 300 mg In 230.417 250 Dextrose 5% in Water 250 ml @ 0.5 MG/MIN 25 mls/hr IV .Q10H [facility] Rx#: [id number] Heparin Sod,Pork in 0.45% 55.121 37.8 NaCl 25,000 unit In 0.45 % NaCl 1 250ml.bag @ Per Protocol IV .Q0M [facility] Rx#: [id number] Oral 45 Output: Urine 665 651 445 Other: Voiding Method Indwelling Catheter Indwelling Catheter Indwelling Catheter ABP, PAP, CO, CI - Last Documented Arterial Blood Pressure 99/54 - Exam PHYSICAL EXAMINATION: Patient is lying in the bed comfortably, no acute distress, sleeping and still coming out of anesthesia HEENT: Normocephalic. Neck is supple. Pupils reactive. Nostrils clear. Oral cavity is moist. Ears reveal no drainage. Neck reveals no JVD, carotid bruits, or thyromegaly. CHEST EXAMINATION: Trachea is central. Symmetrical expansion. Lung snyder clear to auscultation and percussion. CARDIAC: Normal S1, S2 with no gallops. No murmurs ABDOMEN: Soft. Right groin cath is in place. No bleeding. Bowel sounds normal. No organomegaly. No abdominal bruits. Extremities: reveal no edema. No clubbing or cyanosis Neurologically awake, alert, oriented x3 with well-coordinated movements. No focal deficits noted Skin: No rash or skin lesions. Psychiatric: Coperative. Nonsuicidal Musculoskeletal: No joint swelling or deformity. Normal range of motion. - Labs CBC & Chem 7: 09/07/19 04:00 09/07/19 04:00 Labs: Abnormal Lab Results - Last 24 Hours (Table) 09/06/19 09/07/19 09/07/19 Range/Units 18:05 00:05 04:00 WBC 18.1 H (3.8-10.6) k/uL RBC 4.16 L (4.30-5.90) m/uL Hgb 12.8 L (13.0-17.5) gm/dL Hct 36.8 L (39.0-53.0) % APTT 101.9 H* 49.5 H (22.0-30.0) sec Sodium (137-145) mmol/L BUN (9-20) mg/dL Glucose (74-99) mg/dL Total Bilirubin (0.2-1.3) mg/dL AST (17-59) U/L ALT (4-49) U/L Total Protein (6.3-8.2) g/dL Albumin (3.5-5.0) g/dL 09/07/19 09/07/19 Range/Units 04:00 05:40 WBC (3.8-10.6) k/uL RBC (4.30-5.90) m/uL Hgb (13.0-17.5) gm/dL Hct (39.0-53.0) % APTT 47.8 H (22.0-30.0) sec Sodium 135 L (137-145) mmol/L BUN 22 H (9-20) mg/dL Glucose 135 H (74-99) mg/dL Total Bilirubin 1.6 H (0.2-1.3) mg/dL AST 549 H (17-59) U/L ALT 77 H (4-49) U/L Total Protein 5.8 L (6.3-8.2) g/dL Albumin 3.2 L (3.5-5.0) g/dL Assessment and Plan Plan: Acute ST elevated [place]. Status post cardiac catheterization and stent placement 2, patient will be continued on dual antiplatelet therapy beta jatinder and ALESHIA inhibitor and a statin. -Severe ischemic myopathy of of around 20-25% not in acute exacerbation status post impeller device removal. Systolic dysfunction probably acute from acute myocardial infarction not in heart failure exacerbation Nonsustained V. tach. On amiodarone. -Elevated liver enzymes probably secondary to hepatic congestion shock liver presently improving -Leukocytosis reactive in nature and acute myocardial infarction
[2019-09-07] MEDS ORDERED: HEPARIN SODIUM,PORCINE 5,000 UNIT/ML 1 ML VIAL IV ONE (18:35)
[2019-09-07] MEDS ORDERED: HEPARIN SODIUM,PORCINE 5,000 UNIT/ML 1 ML VIAL IV PRN (18:35)
[2019-09-07] MEDS ORDERED: HEPARIN SOD,PORK IN 0.45% NACL 25,000 UNIT in 0.45% NACL 1 250ML.BAG IV SCH (18:45)
--- NOTE | 2019-09-07 19:24 | P.PN ---
Subjective Progress Note Date: 09/07/19 On today's evaluation of 09/07/2019 the patient is being seen for a follow-up. The patient was taken to the Design Quality Engineer and then pallor was taken out. There is concern of reocclusion of the proximal LAD stent and based on discussions with the placement seeing cardiology and the patient is family, it was decided to transfer this patient to [facility] for second evaluation. He has adequate pulses in lower extremities bilaterally. He is laying down in bed comfortably. No bleeding sites at this point in time. No chest pain. His chest x-ray from earlier this morning shows pulmonary vessel congestion/edema. The IV heparin will be also resume and the renal function is currently stable for now. The patient had an echocardiogram the and an 8 patient has systolic heart failure with an ejection fraction of 20-25% and overall LV function is severely impaired. The patient has segmental wall motion abnormalities involving the anterior lateral and inferior norris and his current rhythm is still sinus. In terms of medication, he is on a combination of metoprolol, amiodarone maintenance at 0.5 mg per minute lisinopril 2.5 mg by mouth daily Plavix 75 mg by mouth daily aspirin 325 mg by mouth daily. Objective - Vital Signs Vital signs: Vital Signs Temp 97.6 F 09/07/19 16:00 Pulse 78 09/07/19 19:05 Resp 15 09/07/19 19:05 BP 96/61 09/07/19 19:05 Pulse Ox 93 L 09/07/19 19:05 Intake & Output 09/07/19 09/07/19 09/08/19 06:59 18:59 06:59 Intake Total 671.217 689 20 Output Total 651 675 80 Balance 20.217 14 -60 Weight 90.8 kg Intake: IV 403 439 20 Impella Purge Fluid (D5 143 44 with Heparin) NS KVO 120 345 20 Sodium Chloride 0.9% 1, 140 000 ml @ 75 mls/hr IV . [id number] [facility] Rx#:[id number] Intake, IV Titration 268.217 250 Amount Amiodarone 300 mg In 230.417 250 Dextrose 5% in Water 250 ml @ 0.5 MG/MIN 25 mls/hr IV .Q10H [facility] Rx#: [id number] Heparin Sod,Pork in 0.45% 37.8 NaCl 25,000 unit In 0.45 % NaCl 1 250ml.bag @ Per Protocol IV .Q0M [facility] Rx#: [id number] Output: Urine 651 675 80 Other: Voiding Method Indwelling Catheter Indwelling Catheter ABP, PAP, CO, CI - Last Documented Arterial Blood Pressure 99/54 - Exam Gen. appearance, comfortable no acute distress slightly apprehensive and anxious and he is on 6 is about 2 by nasal cannula to maintain a saturation above 90% Head exam was generally normal. There was no scleral icterus or corneal arcus. Mucous membranes were moist. Neck was supple and without jugular venous distension, thyromegaly, or carotid bruits. Carotids were easily palpable bilaterally. There was no adenopathy. Lungs are diminished and there are crackles at lung bases bilaterally Cardiac exam revealed the PMI to be normally situated and sized. The rhythm was regular and no extrasystoles were noted during several minutes of auscultation. The first and second heart sounds were normal and physiologic splitting of the second heart sound was noted. There were no murmurs, rubs, clicks, or gallops. Abdominal exam revealed normal bowel sounds. The abdomen was soft, non-tender, and without masses, organomegaly, or appreciable enlargement of the abdominal aorta. Examination of the extremities revealed easily palpable radial, femoral and pedal pulses. There was no cyanosis, clubbing or edema. The pulses are weak in the lower extremities in her palpable. neurologically awake and alert and he has no focal neurological deficits at this point in time - Labs CBC & Chem 7: 09/07/19 04:00 09/07/19 04:00 Labs: Abnormal Lab Results - Last 24 Hours (Table) 09/07/19 09/07/19 09/07/19 Range/Units 00:05 04:00 04:00 WBC 18.1 H (3.8-10.6) k/uL RBC 4.16 L (4.30-5.90) m/uL Hgb 12.8 L (13.0-17.5) gm/dL Hct 36.8 L (39.0-53.0) % APTT 49.5 H (22.0-30.0) sec Sodium 135 L (137-145) mmol/L BUN 22 H (9-20) mg/dL Glucose 135 H (74-99) mg/dL Total Bilirubin 1.6 H (0.2-1.3) mg/dL AST 549 H (17-59) U/L ALT 77 H (4-49) U/L Total Protein 5.8 L (6.3-8.2) g/dL Albumin 3.2 L (3.5-5.0) g/dL 09/07/19 Range/Units 05:40 WBC (3.8-10.6) k/uL RBC (4.30-5.90) m/uL Hgb (13.0-17.5) gm/dL Hct (39.0-53.0) % APTT 47.8 H (22.0-30.0) sec Sodium (137-145) mmol/L BUN (9-20) mg/dL Glucose (74-99) mg/dL Total Bilirubin (0.2-1.3) mg/dL AST (17-59) U/L ALT (4-49) U/L Total Protein (6.3-8.2) g/dL Albumin (3.5-5.0) g/dL Assessment and Plan Plan: [address] segment elevation myocardial infarction. The patient underwent emergent cardiac catheterization and stenting of the LAD , and there is a concern of the patient has some residual clotting and thrombosis of the proximal LAD stent. The patient is being considered for a 4 chest for for a second evaluation regards to his acute STEMI and complicated stenting. 2 Ventricular fibrillation stent insertion requiring defibrillation 2 at the time of his stent insertion and cardiac catheterization, currently still on amiodarone maintenance at 0.5 mg/min 3 acute systolic heart failure with an ejection fraction of 20-25% and the patient was in cardiogenic shock and the patient had an impella device inserted and subsequently removed earlier this morning., 4 acute hypoxic respiratory failure currently on 6 L of oxygen by nasal cannula Plan IV fluids to KVO Continue aspirin and Plavix Continue metoprolol and ALESHIA inhibitor's Complete the IV amiodarone maintenance Restart IV heparin Impala device has been removed Echo was noted Transfer this patient to [facility] upon request of cardiology and the the patient is family for further care
[2019-09-07] MEDS: ATORVASTATIN 80 MG TAB PO SCH (20:02)
--- NOTE | 2019-09-07 20:59 | P.PN ---
Progress Note - Text Progress Note Date: 09/07/[address] Chau dictating a follow-up and transfer note on this gentleman. I came in to the room this afternoon to discuss the case of the patient after I did perform left coronary angiogram today as well as after took the Impella out. I discussed with the family the angiogram finding which revealed possible partial stent thrombosis in the LAD. I discussed with them the option between proceeding with coronary angiogram and intravascular ultrasound of the LAD and possible stenting the LAD and left main to be performed at this facility in the next few hours or to our seeing the patient to larger institute like [facility]. The patient decided to be transferred to [facility]. I communicated with [facility] and I spoke with the nurse practitioner manager body shop floorperson were I discussed with her the whole clinical scenario including the patient presenting initially was acute anterior ST patient myocardial infarction and performing successful angioplasty and stenting of the LAD as well as placing left ventricular Impella device as well as the finding of the echocardiogram which include severe cardiomyopathy was EF around 15-20% as well as a finding of the blood work. The fellow body shop floorperson stated that the patient does have a bed and the plan is to proceed was transferred later on today. I discussed that with the family and they were in full understanding.
[2019-09-07 21:05] LABS: INR 1.1 (<1.2); Partial Thromboplastin Time 26.9 sec (22.0-30.0); Prothrombin Time 11.8 sec (9.0-12.0)
[2019-09-08 00:53] VITALS: TEMP 97.5
[2019-09-08] MEDS: AMIODARONE 300 MG in DEXTROSE 5% IN WATER 250 ML IV SCH ×2 (01:07)
[2019-09-08 01:10] VITALS: BP 88/63; PULSE 71; RESP 12
--- NOTE | 2019-09-08 08:00 | CC ---
CARDIAC CATHETERIZATION REPORT CARDIAC PROCEDURE: DATE OF SERVICE: September 07, 2019. PERFORMING PHYSICIAN: Ascencion Chau MD. PROCEDURES PERFORMED: 1. Removing of left ventricular Impella. 2. Deploying 2 Perclose in the right groin and achieving good hemostasis. 3. Left coronary angiogram. INDICATION: This is a 79-year-old gentleman who initially presented to the hospital with chest discomfort and was diagnosed with acute anterior ST-elevation myocardial infarction. He underwent a heart catheterization and stenting of the LAD with left ventricular Impella. Today, he was brought today for the Impella to be taken out because he was hemodynamically stable. APPROACH: Left common femoral artery. COMPLICATION: None. LEVEL OF SEDATION: Moderate with sedation length of about an hour. PROCEDURE DESCRIPTION: After obtaining an informed consent, the patient was brought to the cardiac laboratory aide. Heparin was stopped in the laboratory aide. I did place 2 Perclose at the right groin after I took the 14-Monegasque sheath out and placed new 14-Monegasque sheath out. After that I did deploy the 2 Perclose at 10 o'clock and 2 o'clock with good hemostasis by the end and with good pulse in the right foot. After that and before I took the left groin sheath out. I did perform left coronary angiogram. After that I did achieve good hemostasis at the left groin with the deployment of one Perclose. The procedure was completed without any complication. SELECTIVE CORONARY ANGIOGRAM: 1. The left main is a large caliber vessel. The distal left main appeared to be diseased in the range of 70%. 2. The left circumflex is a large caliber vessel. It is a nondominant vessel. The left circumflex appeared to have mild to moderate diffuse disease. It gives rise into OM1 which has an ostial lesion appeared to be in the range of 50% and OM2 which is small caliber vessel and OM3 which is also small caliber vessel. 3. The LAD: The stent in the LAD appeared to be hazy with a lesion appeared to be in the range of 60% to 70%. The LAD flow appeared to be SID-3 flow. CONCLUSION: 1. Good hemostasis was achieved in the right and left groin. Two Perclose were deployed in the right groin and one Perclose in the left groin. 2. 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 POSTPROCEDURE MANAGEMENT: 1. Maximize medical treatment. 2. Restart the patient back on heparin. 3. Possible transfer the patient to . MMTAMMIE / LISAN: [id number] /
--- NOTE | 2019-09-10 16:43 | P.DS ---
Providers Date of admission: 09/05/19 15:19 Expected date of discharge: 09/07/19 Attending physician: Em Vasquez Consults: 09/05/19 15:10 Consult Physician Stat Consulting Provider: Jade Sierra Consult Reason/Comments: STEMI ACTIVATION COMPLETE Do you want consulting provider notified?: Yes 09/05/19 15:19 Consult Physician Stat Consulting Provider: Preston Harrison Consult Reason/Comments: STEMI Do you want consulting provider notified?: Already Contacted 09/05/19 18:02 Consult Physician Routine Consulting Provider: Jade Sierra Consult Reason/Comments: Post Interventional patient Do you want consulting provider notified?: Already Contacted Primary care physician: Physician Nonstaff Hospital Course: 79-year-old male with a known history of prostate issues status post recent surgery, previous history of smoking presents to ER with complaints of severe nausea and vomiting along with chest discomfort. Patient was working out in a gym. He did some x-rays and weightlifting. He went to drink some water and suddenly felt very nauseated and felt like vomiting. Patient went to the restroom and felt very diaphoretic and pale. He called his girlfriend who did present to his usual to help him. EMS was called and follow lead EKG showed acute ST elevated DC. Patient was transferred to Hospital immediately. Patient was given aspirin in route. Denied any complaints of shortness of breath. No recent illnesses. No cough or sputum production. Patient is originally from [place] and is visiting his friend in [place]. Chest x-ray showed mild diffuse interstitial changes may be chronic. Correlate for bronchitis or asthma. EKG showed ST elevation in the lateral leads. Troponin 0.046 Patient had previous history of smoking. Currently not smoking. Occasional alcohol use. No history of hypertension or diabetes. Status post cardiac catheterization and stent placement 2. Placed on impella. Currently in the MICU. Denied any complaints of chest pain now. 09/06/2019 Patient is currently in the MICU. Remained on ImPELLA. Otherwise patient denied any complaints of chest pain or shortness of breath. Feels weak and tired. No complaints of nausea vomiting or abdominal pain. Patient did have a run of V. tach. Currently being continued on amiodarone drip. Also on metoprolol. Cardiology and pulmonary is following. 09/07/2019 Patient had a selective angiogram which showed partial stent thrombosis in LAD did Dr. Chau radiologist who did the cardiac catheterization discussed with the family regarding options of being transferred versus placing him on the stent and family decided on going to [facility] and possible placement of emboli devise again patient has severe cardiomyopathy with EF of 15-20% Assessment and Plan Plan: Acute ST elevated DC. Status post cardiac catheterization and stent placement 2, patient had an impeller device placed which was subsequently removed underwent repeat Cardiac catheterization which showed in-stent thrombosis patient was subsequently transferred to [facility] -Severe ischemic myopathy of of around 15-20% status post impeller device placement and removal of impeller Nonsustained V. tach. On amiodarone. -Elevated liver enzymes probably secondary to hepatic congestion, shock liver -Leukocytosis reactive in nature due to acute myocardial infarction Patient Condition at Discharge: Serious Plan - Discharge Summary Discharge Rx Participant: No New Discharge Prescriptions: No Action Ascorbic Acid [Vitamin C] 1,000 mg PO DAILY Zinc 50 mg PO DAILY Sildenafil [Revatio] 20 mg PO DAILY Sildenafil Citrate [Viagra] 50 mg PO ONCE PRN PRN Reason: prostate Multivitamins, Thera [Multivitamin (formulary)] 1 tab PO DAILY Fluticasone Nasal Wayside [Flonase Nasal Wayside] 1 spray EA NOSTRIL BID Biotin 5 mg PO DAILY Sildenafil Citrate [Viagra] 100 mg PO DAILY PRN PRN Reason: PROSTATE Discharge Medication List Ascorbic Acid [Vitamin C] 1,000 mg PO DAILY 09/05/19 [History] Biotin 5 mg PO DAILY 09/05/19 [History] Fluticasone Nasal Wayside [Flonase Nasal Wayside] 1 spray EA NOSTRIL BID 09/05/19 [History] Multivitamins, Thera [Multivitamin (formulary)] 1 tab PO DAILY 09/05/19 [History] Sildenafil Citrate [Viagra] 50 mg PO ONCE PRN 09/05/19 [History] Sildenafil [Revatio] 20 mg PO DAILY 09/05/19 [History] Zinc 50 mg PO DAILY 09/05/19 [History] Sildenafil Citrate [Viagra] 100 mg PO DAILY PRN 09/06/19 [History] Follow up Appointment(s)/Referral(s): Nonstaff,Physician [Primary Care Provider] - 1-2 days Patient Instructions/Handouts: *Surgery [facility] - After Heart Catheterization - Manager Audit Instructions, Heart Attack (DC) Discharge Disposition: TRANSFER TO SHORT TERM HOSP
== END 2019-09-08 02:45 | disposition short-term general hospital (02) | DRG 215 ==
LOC: EC 15:06 → 2SICU 15:19
PROVIDERS: ADMIT Internal Medicine; ATTEND Internal Medicine
PROC: 02C03ZZ Extirpation of Matter from Coronary Artery, One Artery, Percutaneous Approach (ICD-10-PCS; 2019-09-05)
PROC: 4A023N7 Measurement of Cardiac Sampling and Pressure, Left Heart, Percutaneous Approach (ICD-10-PCS; 2019-09-05)
PROC: B2111ZZ Fluoroscopy of Multiple Coronary Arteries using Low Osmolar Contrast (ICD-10-PCS; 2019-09-05)
PROC: 027035Z Dilation of Coronary Artery, One Artery with Two Drug-eluting Intraluminal Devices, Percutaneous Approach (ICD-10-PCS; principal; 2019-09-05 15:33)
PROC: 02HA3RZ Insertion of Short-term External Heart Assist System into Heart, Percutaneous Approach (ICD-10-PCS; 2019-09-05 15:33)
PROC: 5A0221D Assistance with Cardiac Output using Impeller Pump, Continuous (ICD-10-PCS; 2019-09-05 15:33)
PROC: 02PA3RZ Removal of Short-term External Heart Assist System from Heart, Percutaneous Approach (ICD-10-PCS; 2019-09-07)
DX: I21.09 ST elevation (STEMI) myocardial infarction involving other coronary artery of anterior wall (principal); I49.01 Ventricular fibrillation; R57.0 Cardiogenic shock; I42.9 Cardiomyopathy, unspecified; I47.2 Ventricular tachycardia; I50.20 Unspecified systolic (congestive) heart failure; T82.867A Thrombosis due to cardiac prosthetic devices, implants and grafts, initial encounter; I25.10 Atherosclerotic heart disease of native coronary artery without angina pectoris; G47.00 Insomnia, unspecified; K59.00 Constipation, unspecified; Y83.1 Surgical operation with implant of artificial internal device as the cause of abnormal reaction of the patient, or of later complication, without mention of misadventure at the time of the procedure; Z79.02 Long term (current) use of antithrombotics/antiplatelets; Z79.82 Long term (current) use of aspirin; Z79.899 Other long term (current) drug therapy; Z80.6 Family history of leukemia; Z83.3 Family history of diabetes mellitus; Z87.891 Personal history of nicotine dependence; N42.9 Disorder of prostate, unspecified
CPT/HCPCS: 33990; 36415; 71045; 80048; 80053; 82550; 82553; 83735; 84484; 85025; 85027; 85347; 85610; 85730; 93005; 93306; 93458; 96374; 99285; C1874

== ENCOUNTER → 2023-04-23 | Outpatient (CLI) | payer MEDICARE, OTHER ==
--- NOTE | 2023-04-23 18:22 | MR ---
EXAMINATION TYPE: MR brain wo/w con DATE OF EXAM: 04/23/2023 6:07 PM COMPARISON: NONE HISTORY: Memory loss CONTRAST: Patient received 8 mL intravenous Gadavist gadolinium contrast. Multiplanar and multispin-echo imaging of the brain was performed . Pre and post contrast enhanced i mages are obtained. The ventricles, basal cisterns and sulci overlying the cerebral convexities are mildly enlarged. There is evidence of mild periventricular white matter ischemic demyelination. Remote deep white matter insults are also noted. No acute edema is seen on diffusion weighted imaging. There is no evidence for midline shift or mass effect. Acute intracranial hemorrhage or extra-axial collection is not evident. No enhancing lesions are seen. The paranasal sinuses and mastoid air cells are well-aerated. IMPRESSION: Age-related atrophic and chronic small vessel ischemic change. No acute intracranial process at this time. No enhancing lesions are seen.
== END | disposition home or self-care (01) ==
LOC: RADMRIMAIN 08:16
PROVIDERS: ATTEND Internal Medicine Geriatric Medicine
DX: I67.82 Cerebral ischemia (principal); G31.9 Degenerative disease of nervous system, unspecified; R41.3 Other amnesia
CPT/HCPCS: 70553; A9585

== ENCOUNTER → 2023-07-05 | Outpatient (CLI) | payer MEDICARE, OTHER ==
[2023-07-05 16:29] LABS: ALT 30 U/L (10-49); AST 31 U/L (14-35); Albumin 4.3 d/dL (3.8-4.9); Albumin/Globulin Ratio 1.59 Ratio (1.60-3.17); Alkaline Phosphatase 77 U/L (41-126); BUN/Creat Ratio 13.85 Ratio (12.00-20.00); Calcium 9.9 mg/dL (8.7-10.3); Carbon Dioxide 26.5 mmol/L (21.6-31.8); Chloride 104 mmol/L (96-109); Chol/HDL Ratio 3.32 Ratio; Globulin 2.7 d/dL (1.6-3.3); Glucose 105 mg/dL (70-110); LDL Cholesterol,Calculated 53.3 mg/dL (0.0-131.0); Potassium 4.9 mmol/L (3.5-5.5); Sodium 141 mmol/L (135-145); Total Bilirubin 0.8 mg/dL (0.3-1.2)
== END | disposition home or self-care (01) ==
LOC: LABWHC1 08:20
PROVIDERS: ATTEND Internal Medicine Interventional Cardiology
DX: E78.2 Mixed hyperlipidemia (principal)
CPT/HCPCS: 36415; 80053; 80061; 82306; 82607; 82746; 84207

== ENCOUNTER → 2023-07-05 | Outpatient (CLI) | payer MEDICARE, OTHER | END | disposition home or self-care (01) | LOC: LABWHC1 08:17 | PROVIDERS: ATTEND Psychiatry & Neurology Neurology | DX: Z53.9 Procedure and treatment not carried out, unspecified reason (principal) ==

== ENCOUNTER → 2024-01-14 | Outpatient (CLI) | payer MEDICARE, OTHER ==
--- NOTE | 2024-01-15 12:44 | XR ---
EXAMINATION TYPE: XR chest 2V DATE OF EXAM: 01/14/2024 COMPARISON: 09/07/2019 HISTORY: 83-year-old [id number] UPPER RESPIRATORY INFECTION, UNSPECIFIED TECHNIQUE: Frontal and lateral views FINDINGS: Heart normal size. Aorta and pulmonary vasculature within normal limits. Some focal patchy density ad jacent to the left heart margin. Otherwise, no other consolidation or pleural effusion. [facility] in the middle third thoracic spine. IMPRESSION: Some patchy atelectasis versus early developing infiltrate at the left lower lung.
== END | disposition home or self-care (01) ==
LOC: RADXRMAIN 16:22
PROVIDERS: ATTEND Internal Medicine Geriatric Medicine
DX: J06.9 Acute upper respiratory infection, unspecified (principal)
CPT/HCPCS: 71046

== ENCOUNTER 2024-07-09 21:11 | Emergency (ER) | payer MEDICARE, OTHER ==
[2024-07-09 21:17] VITALS: RESP 16; TEMP 98
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
[2024-07-09] MEDS: ACETAMINOPHEN TAB 500 MG TAB PO STA (21:52)
[2024-07-09] MEDS: ASPIRIN 81 MG PO STA (21:53)
[2024-07-09] MEDS: LIDOCAINE 4% PATCH TOPICAL ONE (21:53)
[2024-07-09 22:14] LABS: Basophils # (A) 0.1 k/uL (0-0.2); Basophils % (A) 1 %; Eosinophils # (A) 0.3 k/uL (0-0.7); Eosinophils % (A) 3 %; HCT 43.1 % (39.0-53.0); HGB 14.7 gm/dL (13.0-17.5); Lymphocytes # (A) 2.3 k/uL (1.0-4.8); Lymphocytes % (A) 27 %; MCH 31.3 pg (25.0-35.0); MCHC 34.1 g/dL (31.0-37.0); MCV 91.6 fL (80.0-100.0); Mean Platelet Volume 7.9; Monocytes # (A) 0.7 k/uL (0-1.0); Monocytes % (A) 8 %; Neutrophils # (A) 5.3 k/uL (1.3-7.7); Neutrophils % (A) 60 %; Platelet Count 205 k/uL (150-450); RBC 4.71 m/uL (4.30-5.90); WBC 8.7 k/uL (3.8-10.6)
[2024-07-09 22:23] LABS: INR 1.1 (<1.2); Partial Thromboplastin Time 25.7 sec (22.0-30.0); Prothrombin Time 11.8 sec (10.0-12.5)
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
[2024-07-09 22:28] LABS: ALT 33 U/L (4-49); AST 43 U/L (17-59); African American GFR (CKD) 73 (>60 ml/min/1.73 sqM); Alkaline Phosphatase 71 U/L (38-126); Anion Gap 8 mmol/L; Blood Urea Nitrogen 22 mg/dL (9-20); Calcium 9.2 mg/dL (8.4-10.2); Carbon Dioxide 21 mmol/L (22-30); Chloride 106 mmol/L (98-107); Glucose 107 mg/dL (74-99); Lipase 133 U/L (23-300); Non-African American GFR(CKD) 63 (>60 ml/min/1.73 sqM); Sodium 135 mmol/L (137-145); Total Bilirubin 0.6 mg/dL (0.2-1.3); Total Protein 6.7 g/dL (6.3-8.2)
[2024-07-09 22:34] LABS: NT-Pro-B-Type Natriuretic Pept 546 pg/mL
[2024-07-10 01:39] VITALS: BP 128/64; PULSE 76
== END 2024-07-10 01:39 | disposition home or self-care (01) ==
LOC: EC 21:11
DX: S20.219A Contusion of unspecified front wall of thorax, initial encounter (principal); X58.XXXA Exposure to other specified factors, initial encounter
CPT/HCPCS: 36415; 71046; 80053; 83690; 83735; 83880; 84484; 85025; 85610; 85730; 99285